=== PATIENT | male | born 1970 | race Caucasian/White ===

== ENCOUNTER 2018-09-26 17:25 | Emergency (ER) | payer OTHER, SELFPAY ==
[2018-09-26 17:30] VITALS: BP 162/103; PULSE 93; RESP 16; TEMP 37.1; O2SAT 99
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
[2018-09-26] MEDS: TET,DIPH,PERTUSS(ACELL),VAC/PF 0.5 ML SYRINGE IM (19:29)
== END 2018-09-26 20:00 | disposition home or self-care (01) ==
PROVIDERS: Emergency Provider Internal Medicine; Family Provider Family Medicine; PCP Family Medicine
DX: S63.92XA Sprain of unspecified part of left wrist and hand, initial encounter (principal); V19.88XA Pedal cyclist (driver) (passenger) injured in other specified transport accidents, initial encounter; Z23 Encounter for immunization
CPT/HCPCS: 73130; 90471; 99282; 99283; 90715

== ENCOUNTER → 2018-10-19 11:40 | Outpatient (CLI) | payer OTHER, SELFPAY ==
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
== END ==
PROVIDERS: PCP Family Medicine; Visit Provider Family Medicine
DX: M25.532 Pain in left wrist (principal)
CPT/HCPCS: 73110

== ENCOUNTER → 2019-02-02 07:44 | Outpatient (CLI) | payer OTHER, SELFPAY ==
--- NOTE | 2019-02-02 08:50 | PM.TREADMILL ---
Cardiac Stress Test Report Referral & Results Date Patient Seen: 02/02/19 Time Patient Seen: 08:30 Requesting provider: Surinder Barajas Indication: Pre-screening for extended trip to remote area. Requested by Robert Grider MD. Rest ECG: NSR Procedure Note: Today following both written and verbal informed consent, the patient was exercised according to a standard Nirmal protocol. The patient exercised for a total of 9 minutes 54 seconds achieving a maximum heart rate of 180. Patient's maximum systolic blood pressure was 200. This was an estimated 12.8 MET's. No signs or symptoms of angina. No abnormal rhythm. Diffuse ST deviations of 1-2 mm, which resolved rapidly with rest. Functional activity impairment-5% on active scale. Impression: Low probability for ischemia. Mendez treadmill score of 7 predicts 97% survival rate over 5 years. Please note: Actual ECG tracings can be found in the PACS system.
== END ==
PROVIDERS: Visit Provider Family Medicine
DX: Z13.6 Encounter for screening for cardiovascular disorders (principal)
CPT/HCPCS: 93016; 93017; 93018

== ENCOUNTER → 2020-10-16 09:40 | Outpatient (CLI) | payer OTHER, SELFPAY ==
[2020-10-16] MEDS: COVID-19 VACC #1, MRNA(MOD) 100 MCG/0.5 ML VIAL IM (09:48)
== END ==
PROVIDERS: Visit Provider Internal Medicine
DX: Z23 Encounter for immunization (principal)
CPT/HCPCS: 0011A; 91301

== ENCOUNTER → 2020-11-14 09:18 | Outpatient (CLI) | payer OTHER, SELFPAY ==
[2020-11-14] MEDS: COVID-19 VACC #2, MRNA(MOD) 100 MCG/0.5 ML VIAL IM (09:23)
== END ==
PROVIDERS: Visit Provider Internal Medicine
DX: Z23 Encounter for immunization (principal)
CPT/HCPCS: 0012A; 91301

== ENCOUNTER → 2022-03-18 09:32 | Outpatient (CLI) | payer OTHER, SELFPAY ==
[2022-03-18 11:04] LABS: COVID19 -Nasal RAPID Negative (Negative)
== END ==
PROVIDERS: PCP Family Medicine; Visit Provider Surgery
DX: Z01.812 Encounter for preprocedural laboratory examination (principal); Z20.822 Contact with and (suspected) exposure to COVID-19
CPT/HCPCS: 87635; C9803

== ENCOUNTER 2022-03-19 07:29 | Day surgery (SDC) | payer OTHER, SELFPAY ==
[2022-03-19] MEDS: FLEETS ENEMA 1 EACH PR (07:50)
--- NOTE | 2022-03-19 07:50 | SUR.PREOP ---
Dr Ellison at bedside. Notified of patient brown liquid yellowstool in toilet bowel aft BM. See new order for Fleets enema x2 PRN.
[2022-03-19] MEDS: LACTATED RINGERS 1,000 ML 42 ML IV (07:59)
[2022-03-19 08:06] VITALS: BMI 29.9
[2022-03-19 08:09] VITALS: BP 118/90; PULSE 93; RESP 16; TEMP 36.3; O2SAT 99
--- NOTE | 2022-03-19 08:27 | PM.HP.1 ---
History of Present Illness History of Present Illness Date Patient Seen: 03/19/22 Time Patient Seen: 08:27 Chief complaint: SDC Narrative: colon cancer screening. this is his first colonoscopy, no family history for colon cancer Patient History Family & Social History Social History: household members spouse Tobacco & Substance use: Smoking Status Never smoker alcohol intake current alcohol intake frequency a few times a week Substance Use Type does not use Meds Home Medications and Allergies Home Medications Medication Instructions Recorded Confirmed Type aripiprazole 5 mg tablet 5 mg PO DAILY 03/19/22 03/19/22 History bupropion HCl 300 mg 24 hr tablet, 300 mg PO DAILY 03/19/22 03/19/22 History extended release dextroamphetamine sulfate 10 mg 10 mg PO DAILY 03/19/22 03/19/22 History tablet dextroamphetamine-amphetamine ER 30 mg PO DAILY 03/19/22 03/19/22 History 30 mg 24hr capsule,extend release fluoxetine 40 mg capsule 40 mg PO DAILY 03/19/22 03/19/22 History Allergies Allergy/AdvReac Type Severity Reaction Status Date / Time No Known Drug Allergies Allergy Verified 03/19/22 08:04 Exam Vital Signs (past 8 hours): - 03/19/22 08:09 Temperature 97.4 F L Pulse Rate 93 H Respiratory Rate 16 Blood Pressure 118/90 Pulse Oximetry 99 Oxygen Delivery Method Room Air Oxygen Delivery Method Room Air Const General: cooperative, healthy appearing and comfortable Nutritional Appearance: average body habitus HENMT Head: normal to inspection, normocephalic and atraumatic Eyes General: appearance normal, both eyes and all related structures Neck Neck: normal visual inspection and trachea midline Chest Chest: normal inspection of the chest Resp Effort & Inspection: normal respiratory effort and able to speak in complete sentences Cardio Rate: regular rate Rhythm: regular rhythm GI Palpation: soft Skin General: no rashes or lesions noted and elasticity normal Neuro General: patient alert, patient awake and patient oriented x3 Cognition: normal cognition Psych Appearance: grossly normal Judgment: judgment good Assessment & Plan Assessment & Plan narrative: colon cancer screening with colonoscopy and moderate sedation COVID-19 COVID-19 status: Negative Time Spent With Patient Time with patient: less than 30 minutes Critical Care time: I spent a total of [] minutes of critical care time on this patient's care today; this time is exclusive of procedural time.
[2022-03-19] MEDS: MIDAZOLAM 5 MG/5 ML VIAL 7 MG IV (08:53)
[2022-03-19] MEDS: fentaNYL 100 MCG/2 ML INJ 200 MCG IV (08:55)
--- NOTE | 2022-03-19 09:03 | PM.OP.COLON ---
Operative Date/Time/Diagnoses Date of procedure: 03/19/22 Time of procedure: 09:03 Pre-op diagnosis: Colon cancer screening Post-op diagnosis: same Procedure & Clinicians Study performed: Colonoscopy with moderate sedation Same procedure as scheduled: Yes Indications: Colon cancer screening Surgeon: Nancy Ellison Procedure Notes Procedure in detail: Preop diagnosis: Colon cancer screening Postop diagnosis: Same Operative procedure: Colonoscopy with moderate sedation Findings: Normal colonoscopy. No polyps, no diverticulosis. Surgeon: Shala Ellison MD Procedure: Patient placed in lateral position. Rectal exam performed showing normal tone no masses. Colonoscope inserted into the rectum advanced to ileocecal valve with minimal difficulty. Insufflation extraction scope and the above findings. Patient did have a torturous ascending/hepatic flexure area of the colon. But no abnormalities. Retroflex was included in the rectum. Impression: Normal colonoscopy. No polyps, no diverticulosis. Plan: Repeat colonoscopy 10 years unless otherwise indicated by change in family history or clinical condition Sedation minutes: 15 Specimen(s): none sent Complications: none Impression: No polyps, no diverticulosis Post-procedure Recommendations: Colonoscopy in 10 years Follow up: as needed Disposition: PACU
[2022-03-19 09:06] VITALS: BP 108/76; PULSE 85; RESP 10; TEMP 36.4; O2SAT 90
[2022-03-19 09:11] VITALS: BP 122/70; PULSE 87; RESP 14; O2SAT 95
[2022-03-19 09:16] VITALS: BP 122/70; PULSE 79; RESP 16; O2SAT 97
[2022-03-19 09:21] VITALS: BP 106/73; PULSE 78; RESP 16; O2SAT 97
--- NOTE | 2022-03-19 09:26 | SUR.PHASEI ---
0922: Pt A&Ox4, denies any distress and ready to discharge home. Discharge instructions reviewed with pt with time allowed for questions paper copy given to pt. Handoff to CATRACHO Steen to monitor pt unit spouse arrives to take home.
[2022-03-19 09:28] VITALS: BP 108/70; PULSE 77; RESP 18; O2SAT 94
== END 2022-03-19 09:36 | disposition home or self-care (01) ==
PROVIDERS: PCP Family Medicine; Referring Provider Surgery; Visit Provider Surgery
PROC: 0DJD8ZZ Inspection of Lower Intestinal Tract, Via Natural or Artificial Opening Endoscopic (ICD-10-PCS; CPT 45378; principal; 2022-03-19 08:30)
DX: Z12.11 Encounter for screening for malignant neoplasm of colon (principal)
CPT/HCPCS: 45378; 99152; J2250; J3010

== ENCOUNTER → 2022-12-06 09:18 | Outpatient (CLI) | payer OTHER, SELFPAY ==
--- NOTE | 2022-12-06 09:20 | DI.MRI.S_ITS ---
PROCEDURE: MR CERVICAL SPINE WO CON INDICATIONS: Radiculopathy, cervical region TECHNIQUE: Noncontrast sagittal T1 spin echo and T2 fast spin echo, sagittal STIR, foraminal oblique sagittal T2 fast spin echo, and axial gradient echo or T2 fast spin echo through the cervical spine. COMPARISON: None. FINDINGS: Image quality: This examination is limited by involuntary motion artifact. Alignment and Curvature: There is overall straightening of the normal cervical lordosis. No focal AP alignment abnormality is seen. Bone Marrow: Marrow demonstrates normal overall signal. Spinal Cord: Visualized spinal cord has normal size and signal. No cerebellar tonsillar herniation. Paraspinous Soft Tissues: No paravertebral masses. Prevertebral soft tissues are normal in thickness. C2-C3: The disc height and disk signal are relatively well-preserved. A mild degree of generalized disc osteophyte complex is seen. Mild facet joint hypertrophy is seen. There is mild to moderate right-sided and no significant left-sided neural foraminal narrowing. No significant central canal narrowing is seen. C3-C4: The disc height and disk signal are relatively well-preserved. Moderate disc osteophyte complex is seen, which is eccentric to the right. Mild to moderate facet hypertrophy is seen. There is moderate to severe right-sided and moderate left-sided neural foraminal narrowing. No significant central canal narrowing is seen. C4-C5: Mild loss of disc height is seen. Loss of disc signal is seen. Mild to moderate disc osteophyte complex is seen, with a right foraminal disc protrusion, as on series 4, image 24. There is moderate right-sided and no left-sided neural foraminal narrowing. Minimal central canal narrowing is seen. C5-C6: Moderate loss of disc height is seen. Loss of disc signal is seen. Moderate generalized disc osteophyte complex is seen. There is a central disc osteophyte protrusion seen. Moderate to prominent right-sided and moderate left-sided facet hypertrophy can be seen. There is moderate to severe right-sided and moderate left-sided neural foraminal narrowing. Moderate central canal narrowing is seen. There is associated mass effect upon the ventral spinal cord. C6-C7: Moderate loss of disc height is seen. Loss of disc signal is seen. Moderate disc osteophyte complex is seen, with a central/right disc osteophyte protrusion. Uncovertebral joint hypertrophy is seen at this level. Mild to moderate facet hypertrophy is seen. There is moderate to severe right-sided and at least moderate left-sided neural foraminal narrowing. Moderate central canal narrowing is seen. There is associated mass effect upon the ventral spinal cord. C7-T1: The disc height and disk signal are relatively well-preserved. A mild degree of generalized disc osteophyte complex is seen. Mild facet joint hypertrophy is seen. There is moderate right-sided and no left-sided neural foraminal narrowing. No central canal narrowing is seen. IMPRESSION: Cervical spine degenerative changes are seen, which are worst at C5-C6 and C6-C7. Straightening of the normal cervical lordosis is seen, which is commonly observed in patients with muscular spasm. Dictated by: Rojelio Carirllo M.D. on 12/08/2022 at 15:12 Approved by: Rojelio Carrillo M.D. on 12/08/2022 at 15:16
== END ==
PROVIDERS: PCP Family Medicine; Referring Provider Family Medicine; Visit Provider Family Medicine
DX: M54.12 Radiculopathy, cervical region (principal)
CPT/HCPCS: 72141

== ENCOUNTER → 2023-01-23 11:26 | Outpatient (CLI) | payer OTHER, SELFPAY ==
--- NOTE | 2023-01-23 11:29 | DI.US.S_ITS ---
PROCEDURE: US ABDOMEN LIMITED INDICATIONS: LEFT INGUINAL LUMP TECHNIQUE: Real-time focused scanning was performed of the inguinal region, with image documentation. COMPARISON: None. FINDINGS: Fat containing left inguinal hernia within neck measuring approximately 0.7 x 0.6 centimeters. Herniation of fat is seen with Valsalva maneuver which then retracted back into the hernia. IMPRESSION: Likely compressible fat containing left inguinal hernia with neck size measuring approximately 0.7 centimeters. Dictated by: Brent Kincaid M.D. on 01/23/2023 at 14:39 Approved by: Brent Kincaid M.D. on 01/23/2023 at 14:41
== END ==
PROVIDERS: PCP Family Medicine; Referring Provider Family Medicine; Visit Provider Family Medicine
DX: K40.90 Unilateral inguinal hernia, without obstruction or gangrene, not specified as recurrent (principal)
CPT/HCPCS: 76705

== ENCOUNTER 2023-03-10 07:59 | Day surgery (SDC) | payer OTHER, SELFPAY ==
[2023-03-03 08:01] VITALS: BMI 24.8
[2023-03-10] VITALS (7 sets, daily range): BP systolic 117–145; BP diastolic 74–88; PULSE 82–91; RESP 16–21; TEMP 36.1–36.6; O2SAT 98–100; BMI 24.8
[2023-03-10] MEDS: LACTATED RINGERS 1,000 ML 125 ML IV (08:31)
--- NOTE | 2023-03-10 08:50 | PM.PREOP ---
Pre-operative Note COVID-19 COVID-19 status: Not tested Interval Note History & Physical reviewed/Exam performed by Physician: Yes Changes to H&P: No ASA Class (for procedural sedation): I
[2023-03-10] MEDS: CEFAZOLIN 2 GM/100 ML PREMIX 100 ML IV (09:20)
--- NOTE | 2023-03-10 09:35 | SUR.OPER ---
Supine on padded OR bed, head on pillow, arms secured on padded arm boards at <90 degrees abduction, legs uncrossed, safety belt at thigh, tape over blanket over lower legs.
[2023-03-10] MEDS: BUPIVACAINE 0.5% (PF) 30 ML, EPINEPHrine 0.15 MG INJ (09:44)
--- NOTE | 2023-03-10 10:32 | P.OP_ITS ---
Operative Date/Time/Diagnoses Date of procedure: 03/10/23 Time of procedure: 10:32 Pre-op diagnosis: Left inguinal hernia Post-op diagnosis: same Procedure & Clinicians Procedure: Open left inguinal hernia repair with mesh Same procedure as scheduled: Yes Surgeon: Ronaldo Andrew [employer] Operator: Quique Turner Anesthesia Type: General Operative Notes Procedure in detail: Preoperative antibiotic was administered. The patient was brought to the o perating room and placed on the table in supine position general anesthesia was induced. The left groin was prepped and draped in the normal fashion and a time-out was performed. Roughly 10 mL of local anesthetic were injected into the skin and subcutaneous adipose tissue over the left groin. A 5 cm incision was made over the left inguinal canal. Dissection was carried down through the subcutaneous adipose tissue. A bridging vein was cauterized. We exposed the external oblique aponeurosis in the direction of the fibers. Additional local was injected deep to the aponeurosis. A 15 blade scalpel was used to rachna the external oblique aponeurosis. Metzenbaum scissors were used to carefully open the aponeurosis in the direction of the fibers taking care not to injure the underlying ilioinguinal nerve which was well seen and protected. We completely exposed the inguinal canal. The cord was dissected free from the inguinal ligament and floor of the inguinal canal and the external oblique aponeurosis was dissected off of the internal oblique taking care not to injure the hypogastric nerve. We encircled the cord with a Camilo drain for retraction. An indirect defect was found. We dissected the hernia off the cord structures and allowed it to fall back into the abdominal cavity. We placed a polypropylene mesh over the inguinal canal floor. The mesh was secured with multiple interrupted 3-0 Prolene sutures to the pubic tubercle and shelving edge of the inguinal ligament as well as to the conjoint tendon medially. We overlapped the tails to recreate an internal ring and secured the medial tail to the inguinal ligament with additional sutures. We injected some more local into the fatty tissue in the inguinal canal and cord. Finally, we removed the [place] drain and closed the external oblique fascia with a running 3-0 Vicryl suture. Skin was closed with interrupted 3-0 Vicryl dermal sutures and a running 4 Monocryl subcuticular stitch. EBL 5 mL The patient was awakened and brought to recovery room. Post-operative Condition: stable Disposition: PACU
== END 2023-03-10 11:10 | disposition home or self-care (01) ==
PROVIDERS: PCP Family Medicine; Referring Provider Surgery; Visit Provider Surgery
PROC: (CPT 49505; principal; 2023-03-10 09:15)
DX: K40.90 Unilateral inguinal hernia, without obstruction or gangrene, not specified as recurrent (principal)
CPT/HCPCS: 49505; J0171; J0690; J1100; J1885; J2250; J2405; J2704; J3010

== ENCOUNTER → 2023-11-26 13:02 | Outpatient (ROUT) | payer OTHER, SELFPAY | PROVIDERS: PCP Family Medicine; Visit Provider Dermatology | DX: L08.89 Other specified local infections of the skin and subcutaneous tissue (principal) | CPT/HCPCS: 87070; 87077; 87147; 87205 ==

== ENCOUNTER → 2025-01-27 10:15 | Outpatient (CLI) | payer OTHER, SELFPAY ==
--- NOTE | 2025-01-27 10:18 | DI.RAD.S_ITS ---
PROCEDURE: XR LUMBAR SPINE 2-3V INDICATIONS: SCIATICA OF LT SIDE TECHNIQUE: 3 views of the lumbar spine were acquired. COMPARISON: None. FINDINGS: Bones: Five [id number] vertebrae are present. Retrolisthesis of L3 on L4 and of L4 on L5 measures 4 mm at each level. Anterolisthesis of L5 on S1 measures 5 mm. There is otherwise normal bony alignment. Moderate L4-L5 and severe L5-S1 disc height loss with adjacent endplate sclerosis and anterior osteophytosis. No vertebral body compression fractures. No suspicious bony lesions. Soft tissues: Overlying bowel gas pattern is normal. No suspicious soft tissue calcifications. IMPRESSION: Degenerative change of the lumbar spine including multilevel spondylolisthesis without evidence of acute osseous abnormality. Dictated by: Sharath Qiu M.D. on 01/30/2025 at 10:15 Approved by: Sharath Qiu M.D. on 01/30/2025 at 10:16
== END ==
PROVIDERS: PCP Family Medicine; Referring Provider Family Medicine; Visit Provider Family Medicine
DX: M54.32 Sciatica, left side (principal); M43.16 Spondylolisthesis, lumbar region; M47.816 Spondylosis without myelopathy or radiculopathy, lumbar region
CPT/HCPCS: 72100